=== PATIENT | male | born 1960 | race Caucasian/White ===

== ENCOUNTER 2020-02-25 13:45 | Inpatient (IN) ==
[2020-02-25] MEDS ORDERED: DECADRON INJ IVP ONE (16:18)
[2020-02-25] MEDS ORDERED: PROVENTIL NEB TX 0.083% 2.5MG/ 3ML NEB ONE (16:18)
[2020-02-25] MEDS ORDERED: PROVENTIL NEB TX 0.083% 2.5MG/ 3ML ONE (16:29)
--- NOTE | 2020-02-25 16:31 | RAD ---
HISTORYCOVID, SOBSTUDYCHEST, [facility]FINDINGSSUPPORT DEVICES: None.LUNGS/PLEURA: Bilateral patchy airspace opacities. Reduced lung volumes. No pleural effusion or space occupying pneumothorax.HEART AND MEDIASTINUM: Prominence of the cardiac silhouette, exaggerated by technique.BONES AND SOFT TISSUES: No acute abnormality.IMPRESSION1. Bilateral patchy airspace opacities, compatible with pneumonic infiltrates.Electronically signed by: Ralph Caballero (Feb 25, 2020 16:29:17)
[2020-02-25] MEDS: DECADRON INJ ONE ×2 (16:36→16:37)
--- NOTE | 2020-02-25 16:36 | DR.SOBA ---
HPI <Tayo Garcia - Last Filed: 03/09/20 12:31> Time Seen Time Seen by Provider: 02/25/20 14:38 Complaints Chief Complaint Doctors Comments: ccc SOB HPI Pt is a 59 yo WM who was diagnosed COVID 19 + 3 days ago. Starting yesterday he has begun with SOB it increases with exertion decreases with rest. No hemoptysis no orthopnea no CP no calf tenderness no pedal edema COVID-19 Coronavirus risk:travel/contact w/high risk person: No Has patient experienced Coronavirus symptoms: Yes Coronavirus symptoms experienced: Fever, Coughing and Shortness of Breath <Jenni Cerda - Last Filed: 02/26/20 07:44> HPI Comment HPI Comment: Cough, malaise, fatigue, sob, fever to 103 x one week; dx'ed with Covid on Sunday and placed on what dexamethasone and otc vitamins; no abx; worsening sob especially with exertion; can hardly walk a few yards in house without feeling extreme fatigue; pulse ox at home down into the 82-88 range for the past several days. PMH <Tayo Garcia - Last Filed: 03/09/20 12:31> Travel Risk Coronavirus risk:travel/contact w/high risk person: No Has patient experienced Coronavirus symptoms: Yes Coronavirus symptoms experienced: Fever, Coughing and Shortness of Breath ROS <Tayo Garcia - Last Filed: 03/09/20 12:31> Review of Systems Constitutional: Chills, Diaphoresis, Fever, Malaise, Weakness, Fatigue and Loss of Appetite Eyes: No Symptoms Reported ENTM: No Symptoms Reported Respiratoy: Non-Productive Cough, Short of Breath and Wheezing; negative Hemoptysis Cardiovascular: No Symptoms Reported Gastrointestinal/Abdominal: No Symptoms Reported Genitourinary: No Symptoms Reported Neurological: No Symptoms Reported Musculoskeletal: Muscle Pain Integumentary: No Symptoms Reported Hematologic/Lymphatic: No Symptoms Reported Endocrine: No Symptoms Reported Psychiatric: No Symptoms Reported All Other Systems: Reviewed and Negative PE <Tayo Garcia - Last Filed: 03/09/20 12:31> Vital Signs Vitals: Temperature 97.8 F Pulse Rate [Left Brachial] 81 Pulse Rate 100 Respiratory Rate 26 Blood Pressure [Left Arm] 164/87 Blood Pressure 161/86 O2 Sat by Pulse Oximetry 92 General Limitations: No Limitations General Appearance: Alert, In No Apparent Distress and In Distress Head Head Exam: Normal Inspection, Atraumatic and Normocephalic Eyes Eye exam: Normal Appearance, PERRL and EOMI; negative Scleral Icterus and Conj unctival Injection ENT ENT Exam: Normal Exam, Normal Oropharynx, Normal External Ear Exam and Mucous Membranes Moist Neck Neck Exam: Normal Inspection, Full ROM and Trachea Midline; negative Tenderness, Meningismus and Lymphadenopathy Chest Chest Inspection: Normal Inspection and Symmetric Chest Wall Rise; negative Tenderness Respiratory Respiratory Exam: Normal Lung Sounds Bilat; negative Accessory Muscle Use and Chest Wall Tenderness Respiratory Exam: Bilateral: Wheezing and Bilateral: Rhonchi Cardiovascular Cardiovascular Exam: Regular Rate, Normal Rhythm and Normal Heart Sounds Abdominal Exam Abdominal Exam: Normal Inspection, Normal Bowel Sounds and Soft; negative Distention, Tenderness, Guarding, Rebound and Rigidity Extremities Extremities Exam: Normal Inspection and Full ROM; negative Tenderness, Normal Capillary Refill, Edema and Joint Swelling Back Back Exam: Normal Inspection and Full ROM; negative Tenderness, (R) CVA Tenderness, (L) CVA Tenderness and Muscle Spasm Neurologic Neurological Exam: Alert, Oriented X3 and Normal Gait Psychiatric Psychiatric Exam: Normal Affect and Normal Mood; negative Depressed Skin Skin Exam: Warm, Dry and Intact <Jenni Cerda - Last Filed: 02/26/20 07:44> Vital Signs Vitals: Temperature 97.8 F Pulse Rate [Left Brachial] 81 Pulse Rate 100 Respiratory Rate 26 Blood Pressure [Left Arm] 164/87 Blood Pressure 161/86 O2 Sat by Pulse Oximetry 92 MDM <Tayo Garcia - Last Filed: 03/09/20 12:31> Differential Diagnosis Differential Diagnosis: Asthma, Bronchitis, CHF, COPD, Dysrhythmia, Hyponatremia, Mycardial Infarction, Pneumonia, Pneumothorax, Pulmonary embolism, Respiratory Failure, Respiratory Insufficiency, Sinusitis and URI COURSE <Tayo Garcia - Last Filed: 03/09/20 12:31> Treatment Treatment: transferred to Dr Cerda at 1900h <Jenni Cerda - Last Filed: 02/26/20 07:44> Treatment Treatment: [address] Garcia Consultation Call Returned: 20:25 (s/w Dr Clancy who accepts admission and requests ivermectin .2 mg/kg and covid protocol) ROR <Tayo Garcia - Last Filed: 01/12/21 12:31> Labs Reviewed Result Diagrams: 02/27/20 04:15 02/27/20 04:15 Laboratory: 02/25/20 17:20 Blood Blood Culture - Final 02/25/20 17:12 Blood Blood Culture - Final WBC 8.0 X10^3/uL (3.6-10.0) 02/25/20 16:31 RBC 4.90 X10^6/uL (4.7-6.0) 02/25/20 16:31 Hgb 14.3 g/dL (13.5-18.0) 02/25/20 16:31 Hct 43.6 % (42.0-54.0) 02/25/20 16:31 MCV 89.0 fL (80.0-100.0) 02/25/20 16:31 MCH 29.2 pg (27.0-34.0) 02/25/20 16:31 MCHC 32.9 g/dL (33.0-35.0) L 02/25/20 16:31 RDW 13.2 % (11.6-16.5) 02/25/20 16:31 Plt Count 511 X10^3/uL (150.0-450.0) H 02/25/20 16:31 MPV 8.7 fL (7.4-11.0) 02/25/20 16:31 Neut % (Auto) 82.9 % (42.0-75.0) H 02/25/20 16:31 Lymph % (Auto) 10.9 % (21.0-51.0) L 02/25/20 16:31 Hawkins % (Auto) 5.6 % (0.0-13.0) 02/25/20 16:31 Eos % (Auto) 0.0 % (0.9-2.9) L 02/25/20 16:31 Baso % (Auto) 0.6 % (0.2-1.0) 02/25/20 16:31 Neut # (Auto) 6.6 x10^3/uL (2.2-4.8) H 02/25/20 16:31 Lymph # (Auto) 0.9 X10^3/uL (1.3-2.9) L 02/25/20 16:31 Hawkins # (Auto) 0.4 x10^3/uL (0.3-0.8) 02/25/20 16:31 Eos # (Auto) 0.0 x10^3/uL (0.0-0.2) 02/25/20 16:31 Baso # (Auto) 0.0 X10^3/uL (0.0-0.1) 02/25/20 16:31 Absolute Nucleated RBC 0.0 /100WBC 02/25/20 16:31 PT 13.0 SECONDS (11.8-14.3) 02/25/20 16:31 INR Target Range - 02/25/20 16:31 INR 1.01 (0.8-1.3) 02/25/20 16:31 APTT 23.5 SECONDS (22.9-36.5) 02/25/20 16:31 PTT Comment - 02/25/20 16:31 D-Dimer 2.22 ug/ml (0.0-0.57) H* 02/25/20 16:31 Sample Site Rrad 02/25/20 16:56 ABG pH 7.460 (7.35-7.45) H 02/25/20 16:56 ABG pCO2 33.0 mmHg (35.0-45.0) L 02/25/20 16:56 ABG pO2 60.0 mmHg (80.0-100.0) L 02/25/20 16:56 ABG HCO3 23.5 mmol/L (22-26) 02/25/20 16:56 ABG O2 Saturation 92.0 % (90-100) 02/25/20 16:56 ABG Base Excess 0.2 mmol/L (-2.0-2.0) 02/25/20 16:56 Mak Test Pos 02/25/20 16:56 A-a Gradient 48.0 mmHg 02/25/20 16:56 FiO2 21.0 02/25/20 16:56 Blood Gas Comments Pt janae well elj eb 02/25/20 16:56 Sodium 139 mmol/L (136-145) 02/25/20 16:31 Corrected Sodium 142 mmol/L (136-145) 02/25/20 16:31 Potassium 4.0 mmol/L (3.5-5.1) 02/25/20 16:31 Chloride 101 mmol/L (98-107) 02/25/20 16:31 Carbon Dioxide 25.9 mmol/L (21-32) 02/25/20 16:31 BUN 19 mg/dL (7-18) H 02/25/20 16:31 Creatinine 1.01 mg/dL (0.70-1.30) 02/25/20 16:31 Est GFR (MDRD) Af Amer > 60 (>60) 02/25/20 16:31 Est GFR (MDRD) Non-Af > 60 (>60) 02/25/20 16:31 Glucose 215 mg/dL (65-99) H 02/25/20 16:31 Calcium 9.6 mg/dL (8.5-10.1) 02/25/20 16:31 Corrected Calcium 10.2 mg/dL (8.5-10.1) H 02/25/20 16:31 Magnesium 1.9 mg/dL (1.7-2.9) 02/25/20 16:31 Ferritin 432 ng/mL (26-388) H 02/25/20 16:31 Total Bilirubin 0.50 mg/dL (0.2-1.0) 02/25/20 16:31 AST 40 Units/L (15-37) H 02/25/20 16:31 ALT 44 Units/L (12-78) 02/25/20 16:31 Alkaline Phosphatase 80 Units/L (46-116) 02/25/20 16:31 Creatine Kinase 143 Units/L (39-308) 02/25/20 16:31 CK-MB (CK-2) 1.3 ng/mL (0-4.0) 02/25/20 16:31 CK/CKMB % Calc 0.9 % (<4) 02/25/20 16:31 Troponin I < 0.02 ng/mL (0-1.5) 02/25/20 16:31 C-Reactive Protein 20.50 mg/L (0-3.0) H 02/25/20 17:12 B-Natriuretic Peptide 75.4 pg/mL (0-79) 02/25/20 16:31 Total Protein 7.8 g/dL (6.4-8.2) 02/25/20 16:31 Albumin 3.2 g/dL (3.4-5.0) L 02/25/20 16:31 Globulin 4.6 g/dL (2.5-4.5) H 02/25/20 16:31 Albumin/Globulin Ratio 0.7 Ratio (1.1-2.1) L 02/25/20 16:31 Influenza Type A (PCR) Negative (NEGATIVE) 02/25/20 17:22 Influenza Type B (PCR) Negative (NEGATIVE) 02/25/20 17:22 SARS CoV-2 RNA Rapid SMITA Positive (NEGATIVE) A 02/25/20 18:35 EKG Rate: 74 [place]: Normal Rhythm: NSR Block: None Hypertrophy: None ST: Nonsp <Jenni Cerda - Last Filed: 02/26/20 07:44> Labs Reviewed Laboratory Results Reviewed?: Yes Laboratory: 02/25/20 17:20 Blood Blood Culture - Final 02/25/20 17:12 Blood Blood Culture - Final WBC 8.0 X10^3/uL (3.6-10.0) 02/25/20 16:31 RBC 4.90 X10^6/uL (4.7-6.0) 02/25/20 16:31 Hgb 14.3 g/dL (13.5-18.0) 02/25/20 16:31 Hct 43.6 % (42.0-54.0) 02/25/20 16:31 MCV 89.0 fL (80.0-100.0) 02/25/20 16:31 MCH 29.2 pg (27.0-34.0) 02/25/20 16:31 MCHC 32.9 g/dL (33.0-35.0) L 02/25/20 16:31 RDW 13.2 % (11.6-16.5) 02/25/20 16:31 Plt Count 511 X10^3/uL (150.0-450.0) H 02/25/20 16:31 MPV 8.7 fL (7.4-11.0) 02/25/20 16:31 Neut % (Auto) 82.9 % (42.0-75.0) H 02/25/20 16:31 Lymph % (Auto) 10.9 % (21.0-51.0) L 02/25/20 16:31 Hawkins % (Auto) 5.6 % (0.0-13.0) 02/25/20 16:31 Eos % (Auto) 0.0 % (0.9-2.9) L 02/25/20 16:31 Baso % (Auto) 0.6 % (0.2-1.0) 02/25/20 16:31 Neut # (Auto) 6.6 x10^3/uL (2.2-4.8) H 02/25/20 16:31 Lymph # (Auto) 0.9 X10^3/uL (1.3-2.9) L 02/25/20 16:31 Hawkins # (Auto) 0.4 x10^3/uL (0.3-0.8) 02/25/20 16:31 Eos # (Auto) 0.0 x10^3/uL (0.0-0.2) 02/25/20 16:31 Baso # (Auto) 0.0 X10^3/uL (0.0-0.1) 02/25/20 16:31 Absolute Nucleated RBC 0.0 /100WBC 02/25/20 16:31 PT 13.0 SECONDS (11.8-14.3) 02/25/20 16:31 INR Target Range - 02/25/20 16:31 INR 1.01 (0.8-1.3) 02/25/20 16:31 APTT 23.5 SECONDS (22.9-36.5) 02/25/20 16:31 PTT Comment - 02/25/20 16:31 D-Dimer 2.22 ug/ml (0.0-0.57) H* 02/25/20 16:31 Sample Site Rrad 02/25/20 16:56 ABG pH 7.460 (7.35-7.45) H 02/25/20 16:56 ABG pCO2 33.0 mmHg (35.0-45.0) L 02/25/20 16:56 ABG pO2 60.0 mmHg (80.0-100.0) L 02/25/20 16:56 ABG HCO3 23.5 mmol/L (22-26) 02/25/20 16:56 ABG O2 Saturation 92.0 % (90-100) 02/25/20 16:56 ABG Base Excess 0.2 mmol/L (-2.0-2.0) 02/25/20 16:56 Mak Test Pos 02/25/20 16:56 A-a Gradient 48.0 mmHg 02/25/20 16:56 FiO2 21.0 02/25/20 16:56 Blood Gas Comments Pt janae well elj eb 02/25/20 16:56 Sodium 139 mmol/L (136-145) 02/25/20 16:31 Corrected Sodium 142 mmol/L (136-145) 02/25/20 16:31 Potassium 4.0 mmol/L (3.5-5.1) 02/25/20 16:31 Chloride 101 mmol/L (98-107) 02/25/20 16:31 Carbon Dioxide 25.9 mmol/L (21-32) 02/25/20 16:31 BUN 19 mg/dL (7-18) H 02/25/20 16:31 Creatinine 1.01 mg/dL (0.70-1.30) 02/25/20 16:31 Est GFR (MDRD) Af Amer > 60 (>60) 02/25/20 16:31 Est GFR (MDRD) Non-Af > 60 (>60) 02/25/20 16:31 Glucose 215 mg/dL (65-99) H 02/25/20 16:31 Calcium 9.6 mg/dL (8.5-10.1) 02/25/20 16:31 Corrected Calcium 10.2 mg/dL (8.5-10.1) H 02/25/20 16:31 Magnesium 1.9 mg/dL (1.7-2.9) 02/25/20 16:31 Ferritin 432 ng/mL (26-388) H 02/25/20 16:31 Total Bilirubin 0.50 mg/dL (0.2-1.0) 02/25/20 16:31 AST 40 Units/L (15-37) H 02/25/20 16:31 ALT 44 Units/L (12-78) 02/25/20 16:31 Alkaline Phosphatase 80 Units/L (46-116) 02/25/20 16:31 Creatine Kinase 143 Units/L (39-308) 02/25/20 16:31 CK-MB (CK-2) 1.3 ng/mL (0-4.0) 02/25/20 16:31 CK/CKMB % Calc 0.9 % (<4) 02/25/20 16:31 Troponin I < 0.02 ng/mL (0-1.5) 02/25/20 16:31 C-Reactive Protein 20.50 mg/L (0-3.0) H 02/25/20 17:12 B-Natriuretic Peptide 75.4 pg/mL (0-79) 02/25/20 16:31 Total Protein 7.8 g/dL (6.4-8.2) 02/25/20 16:31 Albumin 3.2 g/dL (3.4-5.0) L 02/25/20 16:31 Globulin 4.6 g/dL (2.5-4.5) H 02/25/20 16:31 Albumin/Globulin Ratio 0.7 Ratio (1.1-2.1) L 02/25/20 16:31 Influenza Type A (PCR) Negative (NEGATIVE) 02/25/20 17:22 Influenza Type B (PCR) Negative (NEGATIVE) 02/25/20 17:22 SARS CoV-2 RNA Rapid SMITA Positive (NEGATIVE) A 02/25/20 18:35 XRAY XRAY Interpreted by: Radiologist X-ray Results: cxr: 1. Bilateral patchy airspace opacities, compatible with pneumonic infiltrates. ct chest: Patchy ground-glass consolidation throughout both lung riddle consistent with COVID-19 with other atypical pneumonia, edema, or chronic interstitial disease not excluded. No pulmonary masses or pleural fluid. Visualized upper abdomen shows no significant abnormality. No acute bony abnormality. IMPRESSION: 1. No pulmonary embolus or aortic dissection. 2. Findings consistent with moderate COVID pneumonia. Opioid <Tayo Garcia - Last Filed: 03/09/20 12:31> Opioid Risk Tool Age (Rahul box if 16-45): No History of Preadolescent Sexual Abuse: No Total: 0 Total Score Risk Category: Low Risk Copyright: Mark HATCH predicting aberrant behaviors <Jenni Cerda - Last Filed: 02/26/20 07:44> Opioid Risk Tool Total: 0 Total Score Risk Category: Low Risk <Tayo Garcia - Last Filed: 03/09/20 12:31> Diagnosis Discharge Problem: COVID-19, Hypoxia Instructions Instructions: Type 2 Diabetes Mellitus, Diagnosis, Adult Shortness of Breath, Adult, [id number] Incentive Spirometer Viral Respiratory Infection, Utuz-Jb-Uicl Home Oxygen Use, Adult Upper Respiratory Infection, Adult, [id number] Hypoxia Weakness, Awxq-lg-Oysu Droplet Precautions, Yyda-we-Zzeq Contact Precautions, Ehyo-ri-Ktaq Hypertension, Hrfa-gd-Iqrk Forms: Excuse From Work or School Precautions for COVID19 Patient Portal Social Distancing
[2020-02-25] MEDS ORDERED: ZITHROMAX INJ 500 MG VIAL 500 MG in NS 250 ML IV 250 ML IV SCH (16:46)
[2020-02-25 16:48] LABS: BASOPHILS % (AUTO) 0.6 % (0.2-1.0); HEMATOCRIT 43.6 % (42.0-54.0); HEMOGLOBIN 14.3 g/dL (13.5-18.0); LYMPHOCYTES # (AUTO) 0.9 X10^3/uL (1.3-2.9); LYMPHOCYTES % (AUTO) 10.9 % (21.0-51.0); MEAN CORPUSCULAR HEMOGLOBIN 29.2 pg (27.0-34.0); MEAN CORPUSCULAR HGB CONC 32.9 g/dL (33.0-35.0); MEAN PLATELET VOLUME 8.7 fL (7.4-11.0); MONOCYTES # (AUTO) 0.4 x10^3/uL (0.3-0.8); MONOCYTES % (AUTO) 5.6 % (0.0-13.0); NEUTROPHILS # (AUTO) 6.6 x10^3/uL (2.2-4.8); NEUTROPHILS % (AUTO) 82.9 % (42.0-75.0); PLATELET COUNT 511 X10^3/uL (150.0-450.0); RED CELL DISTRIBUTION WIDTH 13.2 % (11.6-16.5)
[2020-02-25 17:04] LABS: ABG BASE EXCESS 0.2 mmol/L (-2.0-2.0); ABG HCO3 23.5 mmol/L (22-26)
[2020-02-25 17:05] LABS: ABG ALLEN TEST POS
[2020-02-25] MEDS ORDERED: NS 500 ML IV 500 ML IV ONE ×3 (17:19→21:47)
[2020-02-25] MEDS ORDERED: ZITHROMAX INJ 500 MG VIAL IV ONE (17:36)
[2020-02-25] MEDS ORDERED: NS 250 ML IV 250 ML IV ONE ×2 (17:37→21:12)
[2020-02-25 18:05] LABS: BLOOD UREA NITROGEN 19 mg/dL (7-18); CALCIUM 9.6 mg/dL (8.5-10.1); CARBON DIOXIDE 25.9 mmol/L (21-32); CHLORIDE 101 mmol/L (98-107); COR NA(FOR HYPERGLY) 142 mmol/L (136-145); CREATININE 1.01 mg/dL (0.70-1.30); SODIUM 139 mmol/L (136-145); TROPONIN I < 0.02 ng/mL (0-1.5); eGFR NON BLACK RACES > 60 (>60)
[2020-02-25] MEDS ORDERED: NS 100 ML IV 100 ML IV ONE ×2 (18:11→21:12)
[2020-02-25 18:19] LABS: ALANINE AMINOTRANSFERASE 44 Units/L (12-78); ALBUMIN 3.2 g/dL (3.4-5.0); ALKALINE PHOSPHATASE 80 Units/L (46-116); ASPARTATE AMINO TRANSFERASE 40 Units/L (15-37); CKMB % 0.9 % (<4); COR CA(FOR HYPOALB) 10.2 mg/dL (8.5-10.1); CREATINE KINASE 143 Units/L (39-308); CREATINE KINASE MB 1.3 ng/mL (0-4.0); MAGNESIUM 1.9 mg/dL (1.7-2.9); TOTAL PROTEIN 7.8 g/dL (6.4-8.2)
[2020-02-25 18:44] VITALS: BMI 29.2
--- NOTE | 2020-02-25 19:20 | CT ---
PROCEDURE: CTA CHEST .HISTORY: Hypoxia, elevated D-dimer, and COVID-19.TECHNIQUE: Axial images were performed through the chest with the administration of IV contrast with multiplanar reformations . 3D and MIPS reconstructions were performed and reviewed. Dose reduction techniques including Automated Exposure Control (AEC) and adjustment of mA and kV were utilized .COMPARISON: None .TECHNICAL QUALITY: Satisfactory .FINDINGS:Mild atherosclerosis aorta with no aneurysm or dissection.No evidence of pulmonary embolus.Mediastinum and hilar regions show no masses or lymphadenopathy.Normal size heart with no pericardial fluid.Patchy ground-glass consolidation throughout both lung riddle consistent with COVID-19 with other atypical pneumonia, edema, or chronic interstitial disease not excluded. No pulmonary masses or pleural fluid.Visualized upper abdomen shows no significant abnormality.No acute bony abnormality.IMPRESSION:1. No pulmonary embolus or aortic dissection.2. Findings consistent with moderate COVID pneumonia.Electronically signed by: Daniel Welsh (Feb 25, 2020 19:19:01)
[2020-02-25] MEDS ORDERED: IVERMECTIN PO ONE (20:38)
[2020-02-25] MEDS ORDERED: NS 1000 ML 1,000 ML IV SCH (21:00)
[2020-02-25] MEDS ORDERED: PEPCID TAB 20 MG ONE (21:11)
[2020-02-25] MEDS ORDERED: VIBRAMYCIN PO ONE (21:11)
[2020-02-25] MEDS ORDERED: ZINC SULFATE ONE (21:11)
[2020-02-25] MEDS ORDERED: REMDESIVIR IV ONE (21:12)
[2020-02-25] MEDS ORDERED: LOVENOX INJ 30 MG SYR SC ONE (21:12)
[2020-02-25] MEDS ORDERED: IVERMECTIN ONE (21:33)
[2020-02-25] MEDS ORDERED: REMDESIVIR 200 MG in NS 250 ML IV 250 ML IV SCH (22:00)
[2020-02-25] MEDS: IVERMECTIN PO SCH (22:12)
[2020-02-25] MEDS: ASCORBIC ACID INJ MULTI-DOSE VIAL 1,500 MG in NS 100 ML IV 100 ML IV SCH (22:12)
[2020-02-25] MEDS: LOVENOX INJ 30 MG SYR SC SCH (22:12)
[2020-02-25] MEDS: THIAMINE HCL INJ IVP SCH (22:13)
[2020-02-25] MEDS: PEPCID TAB 20 MG PO SCH (22:13)
[2020-02-25] MEDS: VIBRAMYCIN PO SCH (22:14)
[2020-02-25] MEDS: ZINC SULFATE PO SCH (22:14)
[2020-02-25] MEDS ORDERED: NS 1000 ML 1,000 ML ONE (22:31)
[2020-02-25] MEDS: NS 1000 ML 1,000 ML IV SCH (22:55)
[2020-02-26] MEDS ORDERED: NS 100 ML IV 100 ML IV ONE ×2 (03:04→19:58)
[2020-02-26] MEDS: ASCORBIC ACID INJ MULTI-DOSE VIAL 1,500 MG in NS 100 ML IV 100 ML IV SCH (03:34)
[2020-02-26 06:56] LABS: BASOPHILS % (AUTO) 0.2 % (0.2-1.0); HEMATOCRIT 38.4 % (42.0-54.0); HEMOGLOBIN 12.8 g/dL (13.5-18.0); LYMPHOCYTES % (AUTO) 15.9 % (21.0-51.0); MEAN CORPUSCULAR HEMOGLOBIN 29.7 pg (27.0-34.0); MEAN CORPUSCULAR HGB CONC 33.4 g/dL (33.0-35.0); MEAN CORPUSCULAR VOLUME 88.9 fL (80.0-100.0); MEAN PLATELET VOLUME 9.1 fL (7.4-11.0); MONOCYTES # (AUTO) 0.6 x10^3/uL (0.3-0.8); MONOCYTES % (AUTO) 10.4 % (0.0-13.0); NEUTROPHILS # (AUTO) 4.5 x10^3/uL (2.2-4.8); NEUTROPHILS % (AUTO) 73.5 % (42.0-75.0); PLATELET COUNT 466 X10^3/uL (150.0-450.0); RED BLOOD COUNT 4.32 X10^6/uL (4.7-6.0); RED CELL DISTRIBUTION WIDTH 13.4 % (11.6-16.5); WHITE BLOOD COUNT 6.1 X10^3/uL (3.6-10.0)
[2020-02-26 07:18] LABS: ALANINE AMINOTRANSFERASE 37 Units/L (12-78); ALBUMIN 2.6 g/dL (3.4-5.0); ALKALINE PHOSPHATASE 68 Units/L (46-116); ASPARTATE AMINO TRANSFERASE 25 Units/L (15-37); BLOOD UREA NITROGEN 18 mg/dL (7-18); CALCIUM 8.6 mg/dL (8.5-10.1); CARBON DIOXIDE 23.6 mmol/L (21-32); CHLORIDE 104 mmol/L (98-107); COR CA(FOR HYPOALB) 9.7 mg/dL (8.5-10.1); COR NA(FOR HYPERGLY) 144 mmol/L (136-145); CREATININE 0.95 mg/dL (0.70-1.30); SODIUM 141 mmol/L (136-145); TOTAL PROTEIN 6.7 g/dL (6.4-8.2); eGFR NON BLACK RACES > 60 (>60)
[2020-02-26] MEDS: ASCORBIC ACID INJ MULTI-DOSE VIAL 1,500 MG in NS 50 ML IV 50 ML IV SCH ×3 (09:56→21:00)
[2020-02-26] MEDS: DECADRON TAB PO SCH (09:58)
[2020-02-26] MEDS: ZINC SULFATE PO SCH ×2 (09:59→20:57)
[2020-02-26] MEDS: IVERMECTIN PO SCH (09:59)
[2020-02-26] MEDS: VIBRAMYCIN PO SCH ×2 (09:59→20:57)
[2020-02-26] MEDS: PEPCID TAB 20 MG PO SCH ×2 (09:59→20:56)
[2020-02-26] MEDS: LIPITOR TAB 40 MG PO SCH (09:59)
[2020-02-26] MEDS: THIAMINE HCL INJ IVP SCH ×2 (09:59→20:57)
[2020-02-26] MEDS: LOVENOX INJ 30 MG SYR SC SCH ×2 (09:59→20:56)
[2020-02-26] MEDS: NS 1000 ML 1,000 ML IV SCH ×2 (10:00→23:00)
[2020-02-26] MEDS: HumuLIN R SUBCUT PRN ×3 (12:16→21:25)
[2020-02-26] MEDS ORDERED: REMDESIVIR IV ONE (19:57)
[2020-02-26] MEDS ORDERED: PEPCID TAB 20 MG ONE (19:57)
[2020-02-26] MEDS ORDERED: ZINC SULFATE ONE (19:57)
[2020-02-26] MEDS ORDERED: VIBRAMYCIN PO ONE (19:57)
[2020-02-26] MEDS ORDERED: LOVENOX INJ 30 MG SYR SC ONE (19:57)
[2020-02-26] MEDS ORDERED: NS 250 ML IV 250 ML IV ONE (19:58)
[2020-02-26] MEDS ORDERED: NS 1000 ML 1,000 ML ONE (21:06)
[2020-02-26] MEDS ORDERED: HumuLIN R ONE (21:06)
[2020-02-26] MEDS ORDERED: REMDESIVIR 100 MG in NS 250 ML IV 250 ML IV SCH (22:00)
[2020-02-27] MEDS: ASCORBIC ACID INJ MULTI-DOSE VIAL 1,500 MG in NS 50 ML IV 50 ML IV SCH ×2 (02:17→08:14)
[2020-02-27 05:00] LABS: BASOPHILS # (AUTO) 0.2 X10^3/uL (0.0-0.1); BASOPHILS % (AUTO) 2.1 % (0.2-1.0); EOSINOPHILS % (AUTO) 0.1 % (0.9-2.9); HEMATOCRIT 37.6 % (42.0-54.0); HEMOGLOBIN 12.6 g/dL (13.5-18.0); LYMPHOCYTES % (AUTO) 11.1 % (21.0-51.0); MEAN CORPUSCULAR HEMOGLOBIN 29.8 pg (27.0-34.0); MEAN CORPUSCULAR HGB CONC 33.7 g/dL (33.0-35.0); MEAN CORPUSCULAR VOLUME 88.6 fL (80.0-100.0); MEAN PLATELET VOLUME 8.9 fL (7.4-11.0); MONOCYTES # (AUTO) 0.8 x10^3/uL (0.3-0.8); MONOCYTES % (AUTO) 8.6 % (0.0-13.0); NEUTROPHILS # (AUTO) 7.1 x10^3/uL (2.2-4.8); NEUTROPHILS % (AUTO) 78.1 % (42.0-75.0); PLATELET COUNT 476 X10^3/uL (150.0-450.0); RED BLOOD COUNT 4.24 X10^6/uL (4.7-6.0); RED CELL DISTRIBUTION WIDTH 13.6 % (11.6-16.5); WHITE BLOOD COUNT 9.1 X10^3/uL (3.6-10.0)
[2020-02-27 05:14] LABS: ALANINE AMINOTRANSFERASE 47 Units/L (12-78); ALBUMIN 2.5 g/dL (3.4-5.0); ALKALINE PHOSPHATASE 54 Units/L (46-116); ASPARTATE AMINO TRANSFERASE 32 Units/L (15-37); BLOOD UREA NITROGEN 17 mg/dL (7-18); CALCIUM 8.6 mg/dL (8.5-10.1); CARBON DIOXIDE 28.1 mmol/L (21-32); CHLORIDE 104 mmol/L (98-107); COR CA(FOR HYPOALB) 9.8 mg/dL (8.5-10.1); COR NA(FOR HYPERGLY) 143 mmol/L (136-145); CREATININE 0.91 mg/dL (0.70-1.30); SODIUM 141 mmol/L (136-145); TOTAL PROTEIN 6.2 g/dL (6.4-8.2); eGFR NON BLACK RACES > 60 (>60)
[2020-02-27] MEDS: ZINC SULFATE PO SCH (08:14)
[2020-02-27] MEDS: PEPCID TAB 20 MG PO SCH (08:15)
[2020-02-27] MEDS: THIAMINE HCL INJ IVP SCH (08:15)
[2020-02-27] MEDS: LIPITOR TAB 40 MG PO SCH (08:15)
[2020-02-27] MEDS: LOVENOX INJ 30 MG SYR SC SCH (08:15)
[2020-02-27] MEDS: DECADRON TAB PO SCH (08:16)
[2020-02-27] MEDS ORDERED: VITAMIN A PO SCH (09:00)
[2020-02-27] MEDS ORDERED: VITAMIN D3 125 mcg (5,000 UNITS) PO SCH (09:00)
[2020-02-27] MEDS: VIBRAMYCIN PO SCH (11:14)
[2020-02-27 12:23] VITALS: BP 131/64
[2020-02-27] MEDS: NS 1000 ML 1,000 ML IV SCH (13:08)
[2020-02-28] MEDS ORDERED: IVERMECTIN PO SCH (13:00)
== END 2020-02-27 16:15 | disposition home or self-care (01) | DRG 177 ==
LOC: OBS 13:59 → ER 13:59 → OBSVTOIN 20:24 → OBS 20:59
PROVIDERS: ADMIT Obstetrics & Gynecology Obstetrics; ATTEND Obstetrics & Gynecology Obstetrics
DX: U07.1 COVID-19; E11.65 Type 2 diabetes mellitus with hyperglycemia; R79.89 Other specified abnormal findings of blood chemistry; R79.82 Elevated C-reactive protein (CRP); R09.02 Hypoxemia; I10 Essential (primary) hypertension; J12.89 Other viral pneumonia